=== PATIENT | male | born 1940 | race Caucasian/White ===

== ENCOUNTER 2016-07-16 09:30 | Outpatient (RCR) | payer MEDICARE, BC ==
[~2016-07-16 09:30] MED LIST: CARDURA 8MG TAB8 MG PO; CARDURA4 MG PO; DITROPAN 5MG TAB5 MG PO; ELIQUIS 5MG PO; ETODOLAC400 MG PO; GLUCOPHAGE1000 MG PO; HYZAAR 25 MG-101 TAB PO; HYZAAR 50-12.1 UDTAB PO; KLONOPIN 1MG1 MG PO; KLONOPIN2 MG PO; LEVAQUIN 5500 MG/TA1 PO; LODINE400 MG PO; THEO-24 20200 MG/CAP PO; THEO-24100 MG PO; THEO-24400 MG PO; VERELAN240 MG PO; ZOCOR 40MG40 MG PO; ZYLOPRIM 300MG300 MG PO
== END 2016-07-28 12:21 | disposition home or self-care (01) ==
LOC: WSPT 09:30
DX: M54.31 Sciatica, right side (principal)
CPT/HCPCS: G8978-GP; G8979-GP; G8980-GP

== ENCOUNTER → 2017-01-13 | Outpatient (CLI) | payer MEDICARE, BC ==
[~2017-01-13] MED LIST changes: +AMITRIPTYLINE H10 M1 PO; +GLUCOPHAGE XR750 MG PO; +ZYRTEC 10MG10 MG PO
== END ==
LOC: COL.PUL 11:20
DX: R06.02 Shortness of breath (principal); Z87.891 Personal history of nicotine dependence

== ENCOUNTER 2017-01-19 08:45 | Outpatient (RCR) | payer MEDICARE, BC ==
[~2017-01-19 08:45] MED LIST changes: -AMITRIPTYLINE H10 M1 PO; -GLUCOPHAGE XR750 MG PO; -ZYRTEC 10MG10 MG PO
[2017-01-23] MEDS ORDERED: GLUCOPHAGE XR750 MG PO (11:06)
[2017-01-23] MEDS ORDERED: ZYRTEC 10MG10 MG PO (11:07)
[2017-01-23] MEDS ORDERED: AMITRIPTYLINE H10 M1 PO (11:09)
== END 2017-01-29 13:57 | disposition still patient (30) ==
LOC: WSPT 08:45
DX: M46.1 Sacroiliitis, not elsewhere classified (principal); M54.5 Low back pain
CPT/HCPCS: G0283-GP; G8978-GP; G8979-GP; G8980-GP

== ENCOUNTER 2017-01-26 12:24 | Outpatient (CLI) | payer MEDICARE, BC ==
[~2017-01-26] VITALS: Ht 177.8 cm; Wt 144.0 kg
[2017-01-26] VITALS (8 sets, daily range): BP systolic 109–138; BP diastolic 59–78; PULSE 55–76; TEMP 97.6
[~2017-01-26 12:24] MED LIST changes: +AMITRIPTYLINE H10 M1 PO; +GLUCOPHAGE XR750 MG PO; +ZYRTEC 10MG10 MG PO
== END 2017-01-26 17:15 | disposition home or self-care (01) ==
LOC: COL.RAD 12:24
DX: M51.36 Other intervertebral disc degeneration, lumbar region (principal); M46.85 Other specified inflammatory spondylopathies, thoracolumbar region; M51.26 Other intervertebral disc displacement, lumbar region; M48.06 Spinal stenosis, lumbar region; M46.06 Spinal enthesopathy, lumbar region
CPT/HCPCS: Q9965

== ENCOUNTER 2018-09-22 16:15 | Outpatient (RCR) | payer MEDICARE, BC | END 2018-10-21 15:52 | disposition home or self-care (01) | LOC: WSC 16:15 | DX: M54.5 Low back pain (principal) ==

== ENCOUNTER → 2018-10-08 | Outpatient (CLI) | payer MEDICARE, BC | LOC: ZCOL.LAB 11:51 | DX: L03.115 Cellulitis of right lower limb (principal) ==

== ENCOUNTER → 2018-11-15 | Outpatient (REF) ==
[~2018-11-15] MED LIST changes: +CEPHALEXIN500 M1 PO; +GLUCOTROL 5M5 MG/TAB PO; +ISOPTIN SR240 MG PO; +NEURONTIN100 MG/CAP PO; +PRILOSEC 20MG20 MG PO; +REMERON30 MG PO; +SINGULAIR 110 MG/TAB PO
== END ==
LOC: ZLAB.STJ 16:59
DX: L97.509 Non-pressure chronic ulcer of other part of unspecified foot with unspecified severity (principal)

== ENCOUNTER → 2018-12-17 | Outpatient (CLI) | payer MEDICARE, BC | LOC: COL.LAB 11:49 | DX: R60.0 Localized edema (principal) ==

== ENCOUNTER → 2018-12-17 | Outpatient (CLI) | payer MEDICARE, BC | LOC: COL.RAD 09:07 | DX: S81.801A Unspecified open wound, right lower leg, initial encounter (principal); M19.072 Primary osteoarthritis, left ankle and foot; L03.115 Cellulitis of right lower limb | CPT/HCPCS: A9503 ==

== ENCOUNTER 2019-01-10 14:16 | Emergency (ER) | payer MEDICARE, BC ==
[~2019-01-10] VITALS: Ht 177.8 cm; Wt 136.4 kg
[2019-01-10 14:20] VITALS: TEMP 98
[2019-01-10 15:09] LABS: BASO # 0.1 (0.0-0.2); BASO % 0.8 % (0.0-2.0); EOS # 0.2 (0.0-0.7); GRAN # 6.3 (1.4-6.5); GRAN % 73.2 % (42.2-75.2); HEMATOCRIT 38.6 % (42.0-52.0); HEMOGLOBIN 12.8 g/dl (13.5-18.0); LYMPH # 1.5 (1.2-3.4); MEAN CELL VOLUME 94 fl (80.0-100.0); MEAN CORPUSCULAR HEMOGLOBIN 31 pg (27.0-31.0); MEAN CORPUSCULAR HGB CONC 33 g/dl (33.0-37.0); MEAN PLATELET VOLUME 11.1 fl (7.4-10.4); MONO # 0.5 (0.1-0.6); MONO % 6.2 % (1.7-9.3); PLATELET COUNT 209 K/mm3 (130-400); RED BLOOD COUNT 4.11 M/mm3 (4.20-5.60); REDCELL DISTRIBUTION WIDTH-CV 13.9 % (11.5-14.5)
[2019-01-10 15:22] LABS: ALBUMIN 3.7 gm/dL (3.5-5.0); BILIRUBIN,TOTAL 0.5 mg/dL (0.0-1.0); C-REACTIVE PROTEIN 1.3 mg/dL (0.0-0.9); CALCIUM 9.3 mg/dL (8.4-10.2); CREATININE, serum 1.42 (0.66-1.25); POTASSIUM 4.1 mmol/L (3.4-5.0); TOTAL PROTEIN 6.6 gm/dL (6.4-8.2)
[2019-01-10] MEDS ORDERED: ZOFRAN ODT4 MG PO (16:20)
[2019-01-10] MEDS ORDERED: ANTIVERT 25MG25 MG PO (16:20)
[2019-01-10 16:30] VITALS: BP 118/57; PULSE 67
== END 2019-01-10 16:32 | disposition home or self-care (01) ==
LOC: COL.ER 14:16 → EDBD 14:17 → COL.ER 16:32
PROVIDERS: Emergency Medicine
DX: R42 Dizziness and giddiness (principal); J44.9 Chronic obstructive pulmonary disease, unspecified; E78.5 Hyperlipidemia, unspecified; I10 Essential (primary) hypertension; E66.9 Obesity, unspecified; E11.621 Type 2 diabetes mellitus with foot ulcer; E11.42 Type 2 diabetes mellitus with diabetic polyneuropathy; Z98.890 Other specified postprocedural states; Z79.84 Long term (current) use of oral hypoglycemic drugs; Z90.49 Acquired absence of other specified parts of digestive tract
CPT/HCPCS: J2405; J7040

== ENCOUNTER 2019-08-30 11:45 | Outpatient (RCR) | payer MEDICARE, BC ==
[~2019-08-30 11:45] MED LIST changes: +ANTIVERT 25MG25 MG PO; +ZOFRAN ODT4 MG PO
== END 2019-11-01 | disposition still patient (30) ==
LOC: WSPT
DX: M48.061 Spinal stenosis, lumbar region without neurogenic claudication (principal)

== ENCOUNTER 2020-12-24 09:51 | Inpatient (IN) | payer MEDICARE, BC ==
[~2020-12-24] VITALS: Ht 177.8 cm; Wt 124.4 kg
[2020-12-24 10:54] LABS: BASO # 0.1 (0.0-0.2); BASO % 0.5 % (0.0-2.0); EOS # 0.1 (0.0-0.7); EOS % 1.1 % (0-4.0); GRAN # 8.6 (1.4-6.5); HEMATOCRIT 39.8 % (42.0-52.0); HEMOGLOBIN 13.3 g/dl (13.5-18.0); LYMPH # 1.5 (1.2-3.4); LYMPH % 13.3 % (20.0-51.0); MEAN CELL VOLUME 94 fl (80.0-100.0); MEAN CORPUSCULAR HEMOGLOBIN 32 pg (27.0-31.0); MEAN CORPUSCULAR HGB CONC 33 g/dl (33.0-37.0); MEAN PLATELET VOLUME 11.3 fl (7.4-10.4); MONO # 0.7 (0.1-0.6); PLATELET COUNT 260 K/mm3 (130-400); RED BLOOD COUNT 4.22 M/mm3 (4.20-5.60); REDCELL DISTRIBUTION WIDTH-CV 13.7 % (11.5-14.5)
[2020-12-24 11:08] LABS: ALBUMIN 3.7 gm/dL (3.5-5.0); BILIRUBIN,TOTAL 1.1 mg/dL (0.0-1.0); C-REACTIVE PROTEIN 1.1 mg/dL (0.0-0.9); CALCIUM 9.6 mg/dL (8.4-10.2); CREATININE, serum 1.36 (0.66-1.25); POTASSIUM 4.2 mmol/L (3.4-5.0); TOTAL PROTEIN 6.5 gm/dL (6.4-8.2)
[2020-12-24] MEDS ORDERED: CARDURA 8MG TAB8 MG PO (12:24)
[2020-12-24] MEDS ORDERED: KLONOPIN2 MG PO (12:25)
[2020-12-24] MEDS ORDERED: ULTRAM 50MG TAB50 MG PO (12:26)
--- NOTE | 2020-12-24 14:30 | NUR ---
Pt arrived to medical unit room 352 from the ER around 1330. Oriented pt and to room. Admission assessments and med rec updated. Pt currently on 2 lpm O2 by NESHA. Reports severe spasms to lower back precipitated by movement. PRN dilaudid given per orders. Pt assisted onto cart and taken down for MRI at this time.
[2020-12-24] MEDS ORDERED: REGLAN 5MG T5 MG/TAB PO (15:14)
--- NOTE | 2020-12-24 19:05 | NUR ---
Received report from Ángela. Patient awake in bed. at the bedside. He states pain score of 10/10 on his back. Dilaudid given by Ángela at 1853H.
[2020-12-24 19:30] VITALS: BP 104/63; PULSE 96; TEMP 97.9
[2020-12-25 00:08] VITALS: BP 121/69; PULSE 88; TEMP 97.6
[2020-12-25 03:46] VITALS: BP 123/57; PULSE 78; TEMP 97.5
[2020-12-25 04:18] LABS: COLLECTION METHOD CLEAN CATCH
[2020-12-25 04:24] LABS: PH 5 (5-8); SQUAMOUS EPITHELIAL None Seen /hpf; URINE APPEARANCE Clear; URINE BACTERIA None Seen /hpf; URINE BILIRUBIN Negative (NEGATIVE); URINE BLOOD Negative (NEGATIVE); URINE COLOR Yellow; URINE GLUCOSE 1+ (NEGATIVE); URINE KETONE Trace (NEGATIVE); URINE LEUKOCYTE ESTERASE Negative (NEGATIVE); URINE NITRATE Negative (NEGATIVE); URINE PROTEIN(semi-quant) 1+ (NEGATIVE); URINE RBC 0-2 /hpf
--- NOTE | 2020-12-25 05:58 | NUR ---
Patient denies back pain this morning. He is wearing CPAP while asleep.
[2020-12-25 08:34] VITALS: BP 117/75; PULSE 78; TEMP 97.7
--- NOTE | 2020-12-25 13:04 | NUR ---
Environmental Lawyer met with patient to discuss discharge planning. Patient lives in [place] with his , Kim (ph#[phone]) who is at bedside. Patient's primary care physician is Dr. Garduno and patient obtains medications from [facility]. Patient reports he uses a CPAP at home but normally does not require oxygen at baseline. Patient states before he started having this back pain, he was somewhat independent with ADLS but reports he did need some assistance with ADLS at times. SW advised patient that PT's recommendation for discharge is SNF and patient states "that's wrong". SW also advised patient that he is currently observation status which means going to SNF would be out of pocket. Patient states he is absolutely not going to a detention and is also not going to pay for it as he and his "are not rich". SW explained to patient that with him being unable to walk, home is not a safe option. Patient verbalized understanding but states he will not go to a detention. Patient states he has been to [facility] before and had a bad experience. Patient states he is also not interested in [facility] based on reviews from his personal friends. SW advised that there are other options like [facility], [facility] and [facility]. Patient declines again and states he will not go. SW asked patient what his plan is if home is not a safe option. Patient states he needs to speak with the physician as he needs to have an operation to fix his back. SW to follow up with Hospitalist. Discharge Plan: PT recommends SNF, patient is refusing.
[2020-12-25 15:08] LABS: BASO % 0.1 % (0.0-2.0); GRAN # 13.3 (1.4-6.5); GRAN % 87.5 % (42.2-75.2); HEMATOCRIT 39.7 % (42.0-52.0); HEMOGLOBIN 13.3 g/dl (13.5-18.0); LYMPH # 1.1 (1.2-3.4); LYMPH % 7.3 % (20.0-51.0); MEAN CELL VOLUME 92 fl (80.0-100.0); MEAN CORPUSCULAR HEMOGLOBIN 31 pg (27.0-31.0); MEAN CORPUSCULAR HGB CONC 34 g/dl (33.0-37.0); MEAN PLATELET VOLUME 11.6 fl (7.4-10.4); MONO # 0.7 (0.1-0.6); MONO % 4.3 % (1.7-9.3); PLATELET COUNT 295 K/mm3 (130-400); RED BLOOD COUNT 4.31 M/mm3 (4.20-5.60); REDCELL DISTRIBUTION WIDTH-CV 13.5 % (11.5-14.5)
[2020-12-25 15:18] LABS: CALCIUM 9.4 mg/dL (8.4-10.2); CREATININE, serum 1.31 (0.66-1.25)
[2020-12-25 16:38] VITALS: BP 119/61; PULSE 63; TEMP 97.7
--- NOTE | 2020-12-25 18:00 | NUR ---
Scheduled medication given. Assessment preformed. Patient has been C/O of 10/10 pain in his back a majority of the day. PRN [place] and Dilaudid given. Patient reports that this did not help his pain at all. ANA PAULA Perez notified. Morphine and Robaxin ordered. After admnistration, patient report pain has improved and rates it a 5/10. Patient resting in bed at this time. Denies any further needs. Call light in reach. Fall precautions in place. VSS.
--- NOTE | 2020-12-25 19:05 | NUR ---
Received report from [place]. Patient awake in bed. Reports stil having severe back pain.
[2020-12-25 19:53] VITALS: BP 121/57; PULSE 62; TEMP 97.8
[2020-12-25 23:42] VITALS: BP 136/70; PULSE 55; TEMP 97.9
[2020-12-26 01:30] VITALS: BP 111/56
--- NOTE | 2020-12-26 01:42 | NUR ---
Patient called saying he needs to get up. Stella HEDRICK went to patient's room and saw patient standing already, holding on to his walker. Went in to his room and he said that he thought it is already close to 7am and he needs to get up. He said that he tried to go to the bathroom door until the SCD and external catheter caught up his legs and decided to push the call light. Ask questions to assess orientation and he was able to answer them correctly. He is in severe pain on his back with pain score of 11/10. Assisted patient back to bed. He refused to put his CPAP back. SCD placed. Morphine given. Bed alarm on.
[2020-12-26 04:06] VITALS: BP 111/52; PULSE 62; TEMP 97.8
--- NOTE | 2020-12-26 06:20 | NUR ---
Patient denies pain after receiving Morphine. External catheter changed.
[2020-12-26 06:33] LABS: BASO % 0.2 % (0.0-2.0); EOS % 0.1 % (0-4.0); GRAN # 11.1 (1.4-6.5); GRAN % 84.3 % (42.2-75.2); HEMATOCRIT 38.4 % (42.0-52.0); HEMOGLOBIN 12.6 g/dl (13.5-18.0); LYMPH # 1.3 (1.2-3.4); LYMPH % 10.1 % (20.0-51.0); MEAN CELL VOLUME 94 fl (80.0-100.0); MEAN CORPUSCULAR HEMOGLOBIN 31 pg (27.0-31.0); MEAN CORPUSCULAR HGB CONC 33 g/dl (33.0-37.0); MEAN PLATELET VOLUME 11.4 fl (7.4-10.4); MONO # 0.6 (0.1-0.6); MONO % 4.5 % (1.7-9.3); PLATELET COUNT 253 K/mm3 (130-400); RED BLOOD COUNT 4.08 M/mm3 (4.20-5.60); REDCELL DISTRIBUTION WIDTH-CV 13.6 % (11.5-14.5)
[2020-12-26 06:43] LABS: CALCIUM 9.5 mg/dL (8.4-10.2); CREATININE, serum 1.34 (0.66-1.25); POTASSIUM 4.1 mmol/L (3.4-5.0)
[2020-12-26 07:55] VITALS: BP 127/67; PULSE 72; TEMP 97.7
--- NOTE | 2020-12-26 08:50 | NUR ---
Shift assessment complete. Pt lying in bed, refuses breakfast this morning. Continues to report severe back pain, morphine given per orders. A&Ox4. Heart RRR. Lungs CTA. BLE w/mild edema and tere discoloration to shins. Continuing to monitor.
[2020-12-26 11:35] VITALS: BP 112/50; PULSE 72; TEMP 97.4
--- NOTE | 2020-12-26 11:56 | NUR ---
First visit from the health diagnostics teacher. No needs right now.
--- NOTE | 2020-12-26 14:41 | NUR ---
Director Sanitation Bureau followed up with patient to discuss SNF placement. Patient's and daughter are at bedside. Patient is still adamant that he does not want SNF placement. SW reviewed PT note and advised that at this time, the team including Hospitalist do not feel home is a safe discharge plan. Patient states he wants to continue to see how he does before making a decision. SW asked patient's family what they thought of patient returning home. Patient's daughter advised that she thought it would be very difficult for patient's to provide care in patient's current state. SW encouraged patient to consider options and reviewed SNFs in the surrounding area. Patient's family expressed interest in [facility]. Patient is very resistant to this, however SW advised patient and family that she would be contacting [facility] as discharge planning needs to begin before the time he is ready for discharge. Family verbalized understanding, however did not want to provide a second preference at this time. Patient again states he is not deciding on anything at this time and plans to return home if he feels he is able. Patient's inquired about the 30 day window after discharge to go to SNF if patient goes home and fails. SW advised there is a 30 day window, however admitting to SNF from home comes with challenges and preference would be for patient to discharge from hospital directly to SNF. MARIO contacted [facility] and left a message for DON. MARIO then faxed referral. Discharge Plan: Referral sent to [facility], however patient is very resistant and may refuse placement.
[2020-12-26 16:31] VITALS: BP 141/63; PULSE 68; TEMP 97.6
[2020-12-26 20:00] VITALS: BP 114/57; PULSE 65; TEMP 97.8
--- NOTE | 2020-12-26 23:22 | NUR ---
PT ALERT AND OX3. C/O BACK PAIN RATING /10. DENIES SOA, CHEST PAIN OR NAUSEA. RT HAND INT. MORPINE FOR PAIN. POC DISCUSSED. BED ALARM ON. CALL LIGHT WI REACH.
[2020-12-27 00:06] VITALS: BP 127/63; PULSE 67; TEMP 98
[2020-12-27 04:26] VITALS: BP 128/60; PULSE 68; TEMP 97.5
--- NOTE | 2020-12-27 05:16 | NUR ---
RESTED THROUGH THE NIGHT WITHOUT INCIDENT. NEEDS MET. NPO SINCE MIDNIGHT.
[2020-12-27 08:00] VITALS: BP 125/58; PULSE 66; TEMP 97.7
--- NOTE | 2020-12-27 09:00 | NUR ---
Shift assessment complete. Pt sitting on side of bed, continued pain to back morning but plan for epidural this morning. A&Ox4. Heart RRR. Lungs CTA. Decreased appetite and refused breakfast. Continuing to monitor.
--- NOTE | 2020-12-27 10:15 | NUR ---
Pt off unit for epidural at this time.
[2020-12-27 12:36] VITALS: BP 123/60; PULSE 75; TEMP 97.5
--- NOTE | 2020-12-27 16:06 | NUR ---
Transmission Mechanic contacted [facility] regarding referral and they have declined the patient. SW met with the patient's , Kim and daughter, Syeda to discuss denial and revisit the discharge plan. SW discussed PT status and the patient is walking 24 feet at this time. They were agreeable to sending referral to [facility]. Kim states that is the only place they want a referral sent to at this time. Referral faxed. Awaiting response.
[2020-12-27 16:24] VITALS: BP 117/62; PULSE 77; TEMP 98.2
[2020-12-27 22:46] VITALS: BP 109/89; PULSE 110; TEMP 97.8
--- NOTE | 2020-12-27 23:53 | NUR ---
Patient assessed around 2144. Alert and oriented, and able to make needs known. Reported level 2 pain to back. Peripheral INT to right hand. Denies SOB and dyspnea. On oxygen at 2 L/min via NC. LS CTA in upper lobes, diminished in lower. Respirations even and unlabored. HRR. Telemetry in place. Capillary refill less than 3 seconds. Non-tenting skin turgor. BSAx4. Abdomen soft and non-tender. No edema. Voices no questions, needs, or concerns at this time. Resting in bed with call light within reach.
[2020-12-28 04:42] VITALS: BP 121/69; PULSE 77; TEMP 97.6
--- NOTE | 2020-12-28 05:57 | NUR ---
Patient received PRN Rosalia once for this nurse this shift. Woke up complaining of level 5 pain to back. Assisted to bedside commode with three assist, but unable to have a BM. Is passing gas. Assisted back to bed with two assist. Continues on oxygen at 2 L/min via NC. Voices no further questions, needs, or concerns at this time.
[2020-12-28 06:56] LABS: HEMATOCRIT 39.9 % (42.0-52.0); HEMOGLOBIN 13.2 g/dl (13.5-18.0); MEAN CELL VOLUME 94 fl (80.0-100.0); MEAN CORPUSCULAR HEMOGLOBIN 31 pg (27.0-31.0); MEAN CORPUSCULAR HGB CONC 33 g/dl (33.0-37.0); MEAN PLATELET VOLUME 11.9 fl (7.4-10.4); PLATELET COUNT 251 K/mm3 (130-400); RED BLOOD COUNT 4.24 M/mm3 (4.20-5.60); REDCELL DISTRIBUTION WIDTH-CV 13.4 % (11.5-14.5)
--- NOTE | 2020-12-28 07:00 | NUR ---
Report with RYLEY Valencia. Pt resting in bed with eyes closed, resp even and unlabored. O2 at 2 L/min via NC. Call light in reach.
[2020-12-28 07:05] LABS: CALCIUM 9.4 mg/dL (8.4-10.2); CREATININE, serum 1.27 (0.66-1.25); POTASSIUM 4.4 mmol/L (3.4-5.0)
[2020-12-28 08:30] VITALS: BP 131/62; PULSE 96; TEMP 97.7
[2020-12-28 11:49] VITALS: BP 120/57; PULSE 69; TEMP 97.8
[2020-12-28] MEDS ORDERED: METAMUCIL3.4 GM/DOS PO (12:38)
[2020-12-28] MEDS ORDERED: MIRALAX PA17 GM/Dose PO (12:38)
[2020-12-28] MEDS ORDERED: NOVOLOG 100U100 U/M1 SQ (12:38)
[2020-12-28] MEDS ORDERED: COLACE 100100 MG/CAP PO (12:38)
[2020-12-28] MEDS ORDERED: TYLENOL 325MG325 MG PO (12:39)
[2020-12-28] MEDS ORDERED: ROBAXIN 50500 MG/TAB PO (12:39)
[2020-12-28] MEDS ORDERED: NORCO 325 MG-51 TAB PO (12:39)
[2020-12-28] MEDS ORDERED: IPRATROPIUM BROM3 M1 IH (12:39)
--- NOTE | 2020-12-28 14:40 | NUR ---
Pt transferred to Inpatient rehab via WC accompanied by ASSOCIATE PROFESSOR OF ANTHROPOLOGY.
--- NOTE | 2020-12-28 16:27 | NUR ---
E Commerce Developer attended clinical rounds with the team. Since [facility] declined the patient, Hospitalist discussed [facility] I[facility]. He was agreeable. SW contacted the patient's and she was in agreeance. The patient discharge today, 12/28 to [facility] IPR for post acute rehab. *Discharge disposition: IPR*
== END 2020-12-28 14:45 | DRG 551 ==
LOC: EDBD 09:51 → COL.ER 09:51 → MEDICAL 11:49
PROVIDERS: Family Medicine; Physician Assistant; ADMIT Internal Medicine
PROC: 3E0R33Z Introduction of Anti-inflammatory into Spinal Canal, Percutaneous Approach (ICD-10-PCS; principal; 2020-12-27)
DX: M48.04 Spinal stenosis, thoracic region (principal); J96.01 Acute respiratory failure with hypoxia; M48.061 Spinal stenosis, lumbar region without neurogenic claudication; E78.5 Hyperlipidemia, unspecified; E11.42 Type 2 diabetes mellitus with diabetic polyneuropathy; N40.0 Benign prostatic hyperplasia without lower urinary tract symptoms; I48.91 Unspecified atrial fibrillation; J44.9 Chronic obstructive pulmonary disease, unspecified; Z66 Do not resuscitate; E66.9 Obesity, unspecified; I12.9 Hypertensive chronic kidney disease with stage 1 through stage 4 chronic kidney disease, or unspecified chronic kidney disease; N18.9 Chronic kidney disease, unspecified; K21.9 Gastro-esophageal reflux disease without esophagitis; F32.9 Major depressive disorder, single episode, unspecified; R13.10 Dysphagia, unspecified; E11.22 Type 2 diabetes mellitus with diabetic chronic kidney disease; M25.552 Pain in left hip; M25.551 Pain in right hip; G47.33 Obstructive sleep apnea (adult) (pediatric); Z79.84 Long term (current) use of oral hypoglycemic drugs; Z87.891 Personal history of nicotine dependence; Z88.1 Allergy status to other antibiotic agents; Z68.37 Body mass index [BMI] 37.0-37.9, adult
CPT/HCPCS: OP; 99232-AI; 99239; A9585; G0378; J1100; J1170; J1644; J1815; J1885; J2060; J2270; J2550; J3301; J7030

== ENCOUNTER 2020-12-28 12:30 | Inpatient (IN) | payer MEDICARE, BC ==
[~2020-12-28] VITALS: Ht 177.8 cm; Wt 120.2 kg
[~2020-12-28 12:30] MED LIST changes: +REGLAN 5MG T5 MG/TAB PO; +ULTRAM 50MG TAB50 MG PO
[2020-12-28] MEDS ORDERED: COLACE 100100 MG/CAP PO (12:38)
[2020-12-28] MEDS ORDERED: MIRALAX PA17 GM/Dose PO (12:38)
[2020-12-28] MEDS ORDERED: NOVOLOG 100U100 U/M1 SQ (12:38)
[2020-12-28] MEDS ORDERED: METAMUCIL3.4 GM/DOS PO (12:38)
[2020-12-28] MEDS ORDERED: NORCO 325 MG-51 TAB PO (12:39)
[2020-12-28] MEDS ORDERED: ROBAXIN 50500 MG/TAB PO (12:39)
[2020-12-28] MEDS ORDERED: TYLENOL 325MG325 MG PO (12:39)
[2020-12-28] MEDS ORDERED: IPRATROPIUM BROM3 M1 IH (12:39)
--- NOTE | 2020-12-28 14:35 | NUR ---
Received report from RYLEY Green at [facility]. Patient is an 80 Year old male that is a DNR. Patient arrived to [facility] on 12/24/20 due to inability to get out of bed because of increase back pain. He was admitted for medical and pain management. Patient received an epidural on 12/27/20 and pain has improved since then. He is currently on Room Air at this time. VSS 128/57, 69, 97.8, 94% on RA, 17. No skin issues. On ACHS accuchecks. Takes pills whole with water. On an AHA/Carb controlled diet. See H&P for history. Patient will be transferred over to Room 334.
[2020-12-28 18:00] VITALS: BP 111/53; PULSE 68; TEMP 97.3
--- NOTE | 2020-12-28 18:29 | NUR ---
Admission paper work was completed. Patient currently resting in bed, call light in reach and bed alarm set. Will continue to monitor.
--- NOTE | 2020-12-28 23:33 | NUR ---
MR. [place] has been good. His vss.pain is with activities.he resting well. Will continue to monitor.
[2020-12-29 05:39] VITALS: BP 148/68; PULSE 72; TEMP 97.6
--- NOTE | 2020-12-29 10:54 | NUR ---
Pt returned from PT. Talkative. Shift assessment complete, left Pt in bed, Call light in reach, alarm on.
[2020-12-29 12:48] VITALS: BP 126/72; PULSE 85; TEMP 97.5
[2020-12-29 17:07] VITALS: BP 130/67; PULSE 82; TEMP 97.8
--- NOTE | 2020-12-29 21:18 | NUR ---
has been good. He ate diner.Pain rated 3/10.Will continue to monitor.
[2020-12-30 05:41] VITALS: BP 147/69; PULSE 73; TEMP 97.6
[2020-12-30 15:04] VITALS: BP 111/47; PULSE 76; TEMP 97.5
--- NOTE | 2020-12-30 19:36 | NUR ---
RECEIVED CHANGE OF SHIFT REPORT FROM DAY SHIFT NURSE. BED ALARM ON.
--- NOTE | 2020-12-30 20:30 | NUR ---
DENIES CHEST PAIN/SOA/NAUSEA AT THIS TIME. REPORTS CONTINUES TO HAVE SEVERE BACK PAIN WITH SIT TO STAND AND SIT TO LAYING REPOSITIONING.
--- NOTE | 2020-12-30 22:39 | NUR ---
PATIENT RESTING IN BED, C/O BOTH FEET BEING "COLDER THAN HELL", REQUESTING TO WEAR THICK SOCKS FROM HOME UNDER YELLOW FALL SOCKS WHILE LAYING IN BED. PATIENT'S OWN SOCKS PUT ON WITH HOSP SOCKS PLACED OVER SOCKS FROM HOME. PATIENT DENIES ANY OTHER NEEDS. BED ALARM ON, CALL LIGHT WITHIN REACH.
--- NOTE | 2020-12-30 23:49 | NUR ---
PATIENT SLEEPING, BREATHING NONLABORED AND EVEN. CPAP ON. DOES NOT WAKE WHEN STAFF ENTER ROOM AT THIS TIME. BED ALARM ON, CALL LIGHT WITHIN REACH.
--- NOTE | 2020-12-31 03:55 | NUR ---
PATIENT SLEEPING, DOES NOT WAKE WHEN STAFF ENTER ROOM. BED ALARM ON, CALL LIGHT WITHIN REACH. BREATHING NONLABORED AND EVEN.
[2020-12-31 05:31] VITALS: BP 143/70; PULSE 63; TEMP 97.6
--- NOTE | 2020-12-31 07:16 | NUR ---
CHANGE OF SHIFT REPORT GIVEN TO DAY SHIFT NURSEMERRITT RN.
--- NOTE | 2020-12-31 08:00 | NUR ---
Patient laying in bed awake. VSS. Reporting pain in lower back and that the beds are uncomfortable. Pain medication given by night nurse before end of shift. Patient independent with breakfast. No further needs expressed from the patient. Call light within reach
[2020-12-31 17:29] VITALS: BP 135/60; PULSE 65; TEMP 98.3
--- NOTE | 2020-12-31 17:38 | NUR ---
Patient had a productive day, spent most of the day in the recliner. Worked with OT/PT and tolerated well. No complaints of pain, had complaints of cold feet. Kpad and blankets used to warm feet. VSS. Patient called for assistance with ambulation to the bathroom, standby assist with walker and gait belt. No further needs expressed from the patient. Call light within reach
--- NOTE | 2020-12-31 18:34 | NUR ---
RECEIVED CHANGE OF SHIFT REPORT FROM DAY SHIFT NURSE. PATIENT UP IN CHAIR WITH CHAIR ALARM ON, CALL LIGHT WITHIN REACH.
[2021-01-01 05:47] VITALS: BP 150/73; PULSE 70; TEMP 97.7
--- NOTE | 2021-01-01 07:20 | NUR ---
CHANGE OF SHIFT REPORT GIVEN TO DAY SHIFT NURSE, JUVENAL HEDRICK AND SHARMIN HEDRICK.
[2021-01-01 07:25] VITALS: BP 157/82; PULSE 79; TEMP 98
--- NOTE | 2021-01-01 07:59 | NUR ---
Patient able to stand independently using his walker. Independent with breakfast. Currently drinking his miralax in orange juice. Will continue to monitor.
[2021-01-01 11:54] VITALS: BP 149/83; PULSE 89; TEMP 97.7
--- NOTE | 2021-01-01 13:35 | NUR ---
Initial visit; Patient told Detacker his history of coming to our hospital up to the present stay. Felix also spoke of his family and much of the good times of his life. Detacker offered prayer and God's blessings for Felix.
--- NOTE | 2021-01-01 14:31 | NUR ---
Admission QIM scores were reviewed by the team. Code of 4 chosen for toilet hygiene was determined by team discussion to be the most usual performance for this patient during the assessment period. Code of 4 chosen for toileting transfers was determined by team discussion to be the most usual performance for this patient during the assessment period. Code of 10 chosen for upper body dressing was determined by team discussion to be the most usual performance for this patient during the assessment period. Code of 3 for sit to stand was determined by team discussion to be the most usual performance for this patient during the assessment period.--Lilia Christensen, PD
--- NOTE | 2021-01-01 16:13 | NUR ---
The patient was admitted to [facility] on December 28. MARIO met with the patient and his family to complete intake. The patient lives in [place] with his Kim. The patient's PCP is Dr. Garduno and patient receives medications from [facility]. The patient does require some assistance with ADLs at time at baseline. The patient has a CPAP. MARIO will continue to follow to ensure the safest discharge disposition. The patient reports he is ready to go home tomorrow. The team has not set a discharge date for the patient. He states he can do all the things he is doing here, he can do them at home. He states the staff here has been excellent but he is ready to go home. MARIO collaborated the above information with Lilia, [facility] Director.
[2021-01-01 18:00] VITALS: BP 136/62; PULSE 82; TEMP 98.6
--- NOTE | 2021-01-01 19:07 | NUR ---
Patient attended all therapies today. Tolerated diet well. Independent with eating. Supervision with transfer. No new skin issues. Patient pain level 2/10 and request pain medication and wants to stay on it every 4 hours. See new orders for Levemir at HS due to patient's elevated blood glucose. Patient is laying in bed. Call light and bedside table are within reach.
--- NOTE | 2021-01-01 19:15 | NUR ---
RECEIVED CHANGE OF SHIFT REPORT FROM DAY SHIFT NURSE. BED ALARM ON WHILE IN BED. CALL LIGHT WITHIN REACH.
--- NOTE | 2021-01-01 21:00 | NUR ---
DENIES CHEST PAIN/SOA AT THIS TIME. REPORTS NO WORSENING OF COLD FEET DISCOMFORT IF WARM PAD IS CORRECTLY IN PLACE AT ALL TIMES FOR COMFORT. REPORTS ANTICIPATING "BIG MEETING TOMORROW MORNING... TO DETERMINE MY FUTURE" AND EXPRESSING SOME ANXIETY "WHAT IT THE NEUROLOGIST ISN'T ABLE TO SEE ME IN TWO WEEKS WHAT THEN?" DENIED ANY OTHER NEEDS OR CONCERNS AT THIS TIME
--- NOTE | 2021-01-02 00:42 | NUR ---
PATIENT SLEEPING, DOES NOT WAKE WHEN STAFF ENTERED ROOM. CPAP ON, BREATHING NONLABORED AND EVEN. BED ALARM ON WITH CALL LIGHT WITHIN REACH.
[2021-01-02 04:43] VITALS: BP 129/64; PULSE 62; TEMP 97.6
--- NOTE | 2021-01-02 06:30 | NUR ---
Report received from RYLEY Maxwell. Patient is sleeping in bed. Call light and bedside table are within reach. Will continue to monitor patient throughout shift.
--- NOTE | 2021-01-02 07:06 | NUR ---
CHANGE OF SHIFT REPORT GIVEN TO [facility] NURSES, CITLALLI RN AND SHARMIN HEDRICK.
--- NOTE | 2021-01-02 14:15 | NUR ---
Spirits Model met with the patient to present the Team Conference Note. The team has set a tentative discharge on Thursday 01/04 with home health services PT/OT/Nursing and a 4WW. The patient was agreeable. SW presented Medicare.gov's list of home health agencies. The patient chose [facility]. Referral faxed. Awaiting response.
[2021-01-02 17:17] VITALS: BP 120/70; PULSE 72; TEMP 97.4
[2021-01-03 05:23] VITALS: BP 115/57; PULSE 66; TEMP 98.2
--- NOTE | 2021-01-03 08:13 | NUR ---
Pt assessment complete. Pt is sitting up in bed upon entry, he is A/O x4. His breathing is even and unlabored on RA. Pt denies SOB. No N/V. Small soft BM this am. Some pain to legs and wrists. No further needs, therapy with patient at this time.
--- NOTE | 2021-01-03 11:00 | NUR ---
Joint Cutter Machine contacted the patient's and daughter regarding the Team's recommendation of discharge on Thursday, 01/04 with home health. They had no questions at this time. SW discussed that the patient's home health choice is [facility]. No other needs at this time.
--- NOTE | 2021-01-03 14:02 | NUR ---
Esperanza with [facility] contacted this Land Surveying Survey Worker regarding services. She reports they can accept the patient for home health services at discharge.
[2021-01-03 15:39] VITALS: BP 126/62; PULSE 65; TEMP 98.4
--- NOTE | 2021-01-03 18:07 | NUR ---
Pt ambulating well in room with the walker. Good appetite. Pain minimal, using Kpad on feet to help with warmth. Sitting up in the recliner at this time. Call light within reach.
--- NOTE | 2021-01-03 21:00 | NUR ---
PT SITTING UP IN RECLINER. ACCUCHECK 192. SEE MAR FOR SSI GIVEN. K PAD FOR BACK DISCOMFORT.
[2021-01-04 05:08] VITALS: BP 127/66; PULSE 65; TEMP 98.1
--- NOTE | 2021-01-04 06:30 | NUR ---
Patient is sleeping in bed. Call light and bedside table are within reach. Will continue to monitor patient throughout shift.
[2021-01-04] MEDS ORDERED: PROAIR HFA0.09 MG/AC IH (08:45)
[2021-01-04] MEDS ORDERED: NORCO 325 MG-51 TAB PO (09:35)
--- NOTE | 2021-01-04 13:11 | NUR ---
The patient to discharge home today, 01/04 with [facility]. PT/OT/Nursing. SW faxed discharge orders. There are no additional needs.
--- NOTE | 2021-01-04 13:16 | NUR ---
Discharge QIM scores were reviewed by the team. Code of 2 chosen for sit to lying was determined by team discussion to be the most usual performance for this patient during the assessment period.--Lilia Christensen, PD
--- NOTE | 2021-01-04 15:32 | NUR ---
Patient health summary, discharge summary and home meds printed and reviewed with patient and daughter. Stressed importance of follow-up appointments. Reviewed medications and instructed patient to spanish moss picker Methacarbonol at [facility] pharmacy. Belongings gathered by RYLEY Hernandez including CPAP machine. Patient did not have any valuables. Pt transported via wheelchair by RYLEY Hernandez and seatbelted for ride home. Patient and daughter denied questions.
== END 2021-01-04 15:30 | disposition home health service (06) | DRG 947 ==
PROVIDERS: ADMIT Internal Medicine
DX: R53.81 Other malaise (principal); J96.01 Acute respiratory failure with hypoxia; I48.91 Unspecified atrial fibrillation; J44.9 Chronic obstructive pulmonary disease, unspecified; E11.22 Type 2 diabetes mellitus with diabetic chronic kidney disease; E11.42 Type 2 diabetes mellitus with diabetic polyneuropathy; I12.9 Hypertensive chronic kidney disease with stage 1 through stage 4 chronic kidney disease, or unspecified chronic kidney disease; M48.00 Spinal stenosis, site unspecified; Z66 Do not resuscitate; G47.33 Obstructive sleep apnea (adult) (pediatric); M48.061 Spinal stenosis, lumbar region without neurogenic claudication; M48.04 Spinal stenosis, thoracic region; R13.10 Dysphagia, unspecified; E66.01 Morbid (severe) obesity due to excess calories; Z68.39 Body mass index [BMI] 39.0-39.9, adult; K21.9 Gastro-esophageal reflux disease without esophagitis; N40.0 Benign prostatic hyperplasia without lower urinary tract symptoms; F32.9 Major depressive disorder, single episode, unspecified; E78.5 Hyperlipidemia, unspecified; Z79.4 Long term (current) use of insulin; Z79.891 Long term (current) use of opiate analgesic; Z99.81 Dependence on supplemental oxygen; Z88.1 Allergy status to other antibiotic agents; Z87.891 Personal history of nicotine dependence
CPT/HCPCS: 99222-AI; 99231-AI; 99232-AI; 99239; A9284; J1650; J1815

== ENCOUNTER 2021-02-05 20:19 | Observation (INO) | payer MEDICARE, BC ==
[~2021-02-05] VITALS: Ht 177.8 cm; Wt 106.8 kg
[~2021-02-05 20:19] MED LIST changes: +COLACE 100100 MG/CAP PO; +IPRATROPIUM BROM3 M1 IH; +METAMUCIL3.4 GM/DOS PO; +MIRALAX PA17 GM/Dose PO; +NORCO 325 MG-51 TAB PO; +NOVOLOG 100U100 U/M1 SQ; +PROAIR HFA0.09 MG/AC IH; +ROBAXIN 50500 MG/TAB PO; +TYLENOL 325MG325 MG PO
[2021-02-05 21:27] LABS: HEMATOCRIT 43.6 % (42.0-52.0); HEMOGLOBIN 14.1 g/dl (13.5-18.0); MEAN CELL VOLUME 97 fl (80.0-100.0); MEAN CORPUSCULAR HEMOGLOBIN 31 pg (27.0-31.0); MEAN CORPUSCULAR HGB CONC 32 g/dl (33.0-37.0); MEAN PLATELET VOLUME 10.9 fl (7.4-10.4); PLATELET COUNT 304 K/mm3 (130-400); RED BLOOD COUNT 4.52 M/mm3 (4.20-5.60); REDCELL DISTRIBUTION WIDTH-CV 14.4 % (11.5-14.5)
[2021-02-05 21:39] LABS: ALANINE AMINOTRANSFERASE 13 U/L (4-49); ALBUMIN 3.7 gm/dL (3.5-5.0); ALKALINE PHOSPHATASE 135 U/L (50-136); ANION GAP 8 mmol/L (7-16); AST,SGOT 30 U/L (15-37); BILIRUBIN,TOTAL 1.1 mg/dL (0.0-1.0); BLOOD UREA NITROGEN 11 mg/dL (9-20); CALCIUM 9.3 mg/dL (8.4-10.2); CARBON DIOXIDE 27 mmol/L (22-30); CHLORIDE 105 mmol/L (98-107); CREATININE, serum 1.44 (0.66-1.25); GLUCOSE 134 mg/dL (74-106); POTASSIUM 3.4 mmol/L (3.4-5.0); SODIUM 140 mmol/L (137-145); TOTAL PROTEIN 6.9 gm/dL (6.4-8.2)
[2021-02-05 21:52] LABS: TROPONIN-I < 0.012 ng/mL (0.000-0.035)
[2021-02-05 21:53] LABS: BAND 9 % (0-10); BASOPHIL 1 % (0-2); EOSINOPHIL 1 % (0-4); HYPOCHROMIA 1+; LYMPHOCYTE 14 % (20.0-51.0); MYELOCYTE 1 % (0-0); NEUTROPHILS 71 % (42.0-75.2); PLATELET ESTIMATE NORMAL (NORMAL)
[2021-02-05 22:17] LABS: C-REACTIVE PROTEIN 4.2 mg/dL (0.0-0.9)
[2021-02-05 23:51] LABS: COLLECTION METHOD CLEAN CATCH
[2021-02-05 23:56] LABS: MUCOUS Present /lpf; PH 5 (5-8); SQUAMOUS EPITHELIAL None Seen /hpf; URINE APPEARANCE Clear; URINE BACTERIA None Seen /hpf; URINE BILIRUBIN Negative (NEGATIVE); URINE BLOOD Negative (NEGATIVE); URINE COLOR Yellow; URINE GLUCOSE Negative (NEGATIVE); URINE KETONE Trace (NEGATIVE); URINE LEUKOCYTE ESTERASE Negative (NEGATIVE); URINE NITRATE Negative (NEGATIVE); URINE PROTEIN(semi-quant) 2+ (NEGATIVE); URINE RBC 0-2 /hpf; URINE UROBILINOGEN >=4.0 mg/dL (NEGATIVE)
--- NOTE | 2021-02-06 03:04 | NUR ---
SPOKE WITH PT ON HIS ARRIVAL TO FLOOR ABOUT FAMILY BRINGING IN C/BIPAP V60 AVAILABILITY IS LOW.
[2021-02-06 03:22] VITALS: BP 116/55; PULSE 100; TEMP 97.8
--- NOTE | 2021-02-06 04:31 | NUR ---
PT TRANSPORTED TO MEDICAL FLOOR ROOM 359 BY ED STAFF VIA BED AT APPROXIMATELY 0315 , PT A/OX4 VSS, 02 2L NC,N/S INFUSING AT 15ML.HR TO RIGHT FA IV,PT REPORTS PAIN 7/10 TO LOWER BACK REGION, ASSESMENT COMPLETE, THIS NURSE ORIENTED PT TO FLOOR AND DISCUSSED POC, PT VERBALIZES UNDERSTANDING. CALL LIGHT WITHIN REACH.
[2021-02-06 08:22] VITALS: BP 108/58; PULSE 92; TEMP 97.6
--- NOTE | 2021-02-06 08:56 | NUR ---
Patient laying in bed with urinal in hand upon entering the room. Urinal was emptied, output was just under 100mL. Patient stated his pain was 3/10, in his lumbar region. Lidocaine patch was placed in this area. All morning medications were administered and assessment was completed. Lab was in the room drawing blood when this RN left the room.
[2021-02-06 09:09] LABS: HEMATOCRIT 38.8 % (42.0-52.0); HEMOGLOBIN 12.8 g/dl (13.5-18.0); MEAN CELL VOLUME 96 fl (80.0-100.0); MEAN CORPUSCULAR HEMOGLOBIN 32 pg (27.0-31.0); MEAN CORPUSCULAR HGB CONC 33 g/dl (33.0-37.0); MEAN PLATELET VOLUME 10.5 fl (7.4-10.4); PLATELET COUNT 284 K/mm3 (130-400); RED BLOOD COUNT 4.06 M/mm3 (4.20-5.60); REDCELL DISTRIBUTION WIDTH-CV 14.3 % (11.5-14.5)
[2021-02-06 09:19] LABS: CALCIUM 8.8 mg/dL (8.4-10.2); CREATININE, serum 1.3 (0.66-1.25); POTASSIUM 3.4 mmol/L (3.4-5.0)
--- NOTE | 2021-02-06 10:26 | NUR ---
bed worker met with patient to discuss discharge plan. Patient lives in [place] with his (Kim [phone]). Daughter (Buzz) present in the room. Patient is independent with activities of daily living, and uses a 4 wheel walker to get around, has a life chair and uses a Cpap at home. Patient see's Dr. Garduno for a PCP and uses [facility] for perscriptions. Patient states he has a DPOA-HC established, states she has a copy at home, social media designer asked for her to bring a copy in. Patient thinks his daughter is his agent. Patient was admitted for frequent falls, PT/OT notified social media designer that they would recommend SNF. The patient is observation status. bed worker discussed IPR and SNF but how due to OBS status it could be private pay. The patient's family reports they would not be able to pay private pay. Patient refuses IPR/SNF, he states he is returning back home. bed worker discussed having home health services and patient refused this service as well. Patients family appeared frustrated, but is supportative of patient wishes. *Discharge plan: Home*
[2021-02-06] MEDS ORDERED: NYSTATIN OR100 MU/ML PO (12:19)
[2021-02-06 12:24] VITALS: BP 121/58; PULSE 103; TEMP 97.6
--- NOTE | 2021-02-06 15:13 | NUR ---
MARIO notified the hospitalist of the patient's decision to return home and how he has refused SNF and home health. The clinical team rounded on the patient and he is still refusing rehab and home health. The patient is to discharge back home with his today, 02/06. MARIO made an APS report. IntakeID#[id number].
--- NOTE | 2021-02-06 15:49 | NUR ---
Patient has done well today. Worked with PT without any difficulty. Patient had no complaints at the time of discharge. PCT escorted the patient out with his .
== END 2021-02-06 15:30 | disposition home or self-care (01) ==
LOC: COL.ER 20:19 → MEDICAL 02-06 00:48
PROVIDERS: Nurse Practitioner; Physician Assistant; ADMIT Internal Medicine
DX: R29.6 Repeated falls (principal); R53.81 Other malaise; M48.00 Spinal stenosis, site unspecified; R07.81 Pleurodynia; J96.02 Acute respiratory failure with hypercapnia; B37.0 Candidal stomatitis; E78.5 Hyperlipidemia, unspecified; I48.91 Unspecified atrial fibrillation; J44.9 Chronic obstructive pulmonary disease, unspecified; N18.9 Chronic kidney disease, unspecified; G47.33 Obstructive sleep apnea (adult) (pediatric); K21.9 Gastro-esophageal reflux disease without esophagitis; N40.0 Benign prostatic hyperplasia without lower urinary tract symptoms; G89.29 Other chronic pain; E11.42 Type 2 diabetes mellitus with diabetic polyneuropathy; I13.10 Hypertensive heart and chronic kidney disease without heart failure, with stage 1 through stage 4 chronic kidney disease, or unspecified chronic kidney disease; E11.22 Type 2 diabetes mellitus with diabetic chronic kidney disease; F32.9 Major depressive disorder, single episode, unspecified; Z79.84 Long term (current) use of oral hypoglycemic drugs; Z99.89 Dependence on other enabling machines and devices; Z79.899 Other long term (current) drug therapy; Z79.891 Long term (current) use of opiate analgesic; Z87.891 Personal history of nicotine dependence
CPT/HCPCS: 99223-AI; A9284; G0378; J3010; J7030; J7040

== ENCOUNTER → 2021-05-29 | Outpatient (CLI) | payer MEDICARE, BC ==
[~2021-05-29] MED LIST changes: +NYSTATIN OR100 MU/ML PO
== END ==
LOC: COL.RAD 09:08
DX: S22.49XA Multiple fractures of ribs, unspecified side, initial encounter for closed fracture (principal)
CPT/HCPCS: A9503

== ENCOUNTER 2021-05-30 14:15 | Outpatient (RCR) | payer MEDICARE, BC | END 2021-05-31 15:17 | disposition home or self-care (01) | LOC: WSPT 14:15 | DX: R42 Dizziness and giddiness (principal) ==

== ENCOUNTER 2021-11-20 13:37 | Emergency (ER) | payer MEDICARE, BC ==
[~2021-11-20] VITALS: Ht 177.8 cm; Wt 115.9 kg
[2021-11-20 13:37] VITALS: TEMP 98.5
[2021-11-20 13:59] LABS: BASO # 0.1 K/mm3 (0.0-0.2); BASO % 0.7 % (0.0-2.0); EOS # 0.1 K/mm3 (0.0-0.7); EOS % 0.9 % (0.0-4.0); GRAN # 8.6 K/mm3 (1.4-6.5); GRAN % 78.5 % (42.2-75.2); HEMOGLOBIN 12.3 g/dl (13.5-18.0); LYMPH # 1.3 K/mm3 (1.2-3.4); LYMPH % 11.4 % (20.0-51.0); MEAN CELL VOLUME 93 fl (80.0-100.0); MEAN CORPUSCULAR HEMOGLOBIN 31 pg (27-31); MEAN CORPUSCULAR HGB CONC 33 g/dl (33.0-37.0); MEAN PLATELET VOLUME 11.5 fl (7.4-10.4); MONO # 0.9 K/mm3 (0.1-0.6); MONO % 8.1 % (1.7-9.3); PLATELET COUNT 243 K/mm3 (130-400); RED BLOOD COUNT 3.96 M/mm3 (4.20-5.60); REDCELL DISTRIBUTION WIDTH-CV 14.6 % (11.5-14.5)
[2021-11-20 14:15] LABS: ALANINE AMINOTRANSFERASE 16 U/L (0-55); ALBUMIN 3.9 gm/dL (3.4-4.8); ALKALINE PHOSPHATASE 137 U/L (40-150); ANION GAP 11 mmol/L (7-16); AST,SGOT 23 U/L (5-34); BILIRUBIN,TOTAL 0.9 mg/dL (0.2-1.2); BLOOD UREA NITROGEN 21 mg/dL (8-26); CALCIUM 9.3 mg/dL (8.4-10.2); CARBON DIOXIDE 24 mmol/L (23-31); CHLORIDE 108 mmol/L (98-107); CREATININE, serum 1.58 mg/dL (0.72-1.25); GLUCOSE 193 mg/dL (70-99); POTASSIUM 4.5 mmol/L (3.5-4.5); SODIUM 143 mmol/L (136-145); TOTAL PROTEIN 6.9 gm/dL (6.2-8.1)
[2021-11-20 14:23] LABS: TROPONIN-I < 0.010 ng/mL (0.00-0.033)
[2021-11-20 19:10] VITALS: BP 145/60; PULSE 98
[2021-11-20] MEDS ORDERED: NAPROSYN 2250 MG/TAB PO (19:19)
== END 2021-11-20 19:10 | disposition home or self-care (01) ==
LOC: COL.ER 13:37
PROVIDERS: Family Medicine
DX: I31.3 Pericardial effusion (noninflammatory) (principal); I31.9 Disease of pericardium, unspecified; E66.9 Obesity, unspecified; Z68.36 Body mass index [BMI] 36.0-36.9, adult; Z20.822 Contact with and (suspected) exposure to COVID-19
CPT/HCPCS: J1885; J2270; Q9967